=== PATIENT | female | born 1995 | race African-American/Black ===

== ENCOUNTER 2020-06-23 13:50 | Emergency (ER) | payer SELFPAY ==
[2020-06-23] MEDS ORDERED: Aspirin Chewable 81 MG TAB ONE (15:47)
[2020-06-23 16:04] LABS: #Basophils 0.1 10x3/uL (0.0-0.2); #Eosinphils 0.5 10x3/uL (0.0-0.5); #Monocytes 0.7 10x3/uL (0.0-1.1); #Neutrophils 4.8 10x3/uL (1.5-8.4); %Basophils 0.9 % (0.0-2.0); %Eosinophils 5.6 % (0.0-6.0); %Lymphocytes 24.5 % (18.0-47.0); %Monocytes 8.5 % (0.0-10.0); %Neutrophils 60.1 % (40.0-75.0); Hemoglobin 13.3 g/dL (12.0-15.5); Mean Corpuscular HGB CONC 32.2 g/dL (32.0-36.0); Mean Corpuscular Hemoglobin 26.4 pg (27.0-33.0); Mean Corpuscular Volume 81.9 fl (81.6-98.3); Mean Platelet Volume 11.5 fl (7.4-10.4); Platelet Count 216 10x3/uL (150-450); Red Blood Cell (RBC) Count 5.04 10x6/uL (3.90-5.03)
[2020-06-23 16:17] LABS: BHCG - Serum Negative (NEGATIVE); Pregs Control Background? CLEAR/WHITE (CLR/WHITE); Pregs Control Bar Appear? YES (CONTROL BAR)
[2020-06-23 16:23] LABS: ALT (SGPT) 23 U/L (8-55); AST (SGOT) 22 U/L (5-34); Alkaline Phosphatase 56 U/L (40-110); Anion Gap 13 mmol/L (10-20); BUN (Urea Nitrogen) 12 mg/dL (7.0-18.7); Bilirubin, Total 0.9 mg/dL (0.2-1.2); CK (CPK) 172 U/L (29-168); Calc. Creatinine Clearance 0 mL/min (70-130); Carbon Dioxide 25 mmol/L (22-29); Chloride 104 mmol/L (98-107); Glucose 69 mg/dL (70-105); Sodium 138 mmol/L (136-145)
[2020-06-23 17:47] LABS: Troponin I 0.013 ng/mL (< 0.028)
== END 2020-06-23 18:23 | disposition home or self-care (01) ==
LOC: CSHERS 13:50
DX: R07.2 Precordial pain (principal); R06.00 Dyspnea, unspecified
CPT/HCPCS: 71045; 80053; 82550; 84484; 84703; 85025; 85379; 93005